=== PATIENT | female | born 1955 | race Caucasian/White ===

== ENCOUNTER 2020-08-01 11:25 | Emergency (ER) | payer OTHER, SELFPAY ==
[2020-08-01 11:30] VITALS: BP 137/73; PULSE 87; RESP 20; TEMP 36.7; O2SAT 96; BMI 40.3
--- NOTE | 2020-08-01 12:02 | DI.MRI.S_ITS ---
PROCEDURE: MR LUMBAR SPINE WO/W CON INDICATIONS: severe pain, LLE weakness TECHNIQUE: Noncontrast sagittal T1 spin echo and T2 fast spin echo, sagittal STIR, axial T1 and T2 fast spin echo through the lumbar spine. In cases with scoliosis, additional coronal T2 fast spin echo may be performed. After the administration of contrast, sagittal and axial T1 spin echo with fat saturation through the lumbar spine. COMPARISON: None. FINDINGS: Image quality: Excellent. Alignment and curvature: There is normal bony alignment. Marrow: Marrow is of normal overall signal. No acute vertebral body compression fractures. No suspicious marrow enhancement. Spinal cord: Conus medullaris terminates at the L1 level. Visualized spinal cord demonstrates normal signal, without suspicious enhancement. Fatty filum terminale can be seen, as on series 3, image 10 and on series 5 image 13, without findings of cord tethering. Paraspinous soft tissues: No paravertebral masses or abnormal enhancement. Postoperative change can be seen at the L4-L5 level, with an expected amount of edema and enhancement. No abnormal postoperative fluid collections are seen. T12-L1: Normal appearance. L1-L2: Normal appearance. L2-L3: Normal appearance. L3-L4: The disc height and disc signal are relatively well preserved. Moderate generalized disc bulge is seen. Moderate facet joint hypertrophy is seen. Associated hypertrophy of the ligamentum flavum can be seen. Moderate bilateral neural foraminal narrowing is seen. Mild central canal narrowing is seen. L4-L5: The disc height is well-preserved. Loss of disc signal is seen at this level. Moderate disc bulge is seen, with a central disc extrusion. At least moderate facet hypertrophy is seen at this level. Enhancing dural fibrosis can be seen, including posteriorly. There is at least moderate left-sided and moderate to severe right-sided neural foraminal narrowing seen. There is a degree of compression seen upon the exiting right L4 nerve root. Moderate to severe central canal narrowing is seen at this level. L5-S1: Moderate to severe loss of disc height and disc signal can be seen. Reactive marrow endplate changes are seen, which are hyperintense on T1-weighted and T2-weighted imaging and most consistent with fatty metaplasia (Modic type II changes). Moderate generalized disc bulge is seen. Moderate facet joint hypertrophy is seen. There is moderate to severe right-sided and at least moderate left-sided neural foraminal narrowing seen. A degree of compression can be seen upon the exiting L5 nerve roots, right worse than left. Moderate central canal narrowing is seen, which is exacerbated by epidural lipomatosis. IMPRESSION: Postoperative change can be seen at the L4-L5 level, with enhancement and dural fibrosis. There is a seen central disc extrusion seen at L4-L5. Moderate to severe central canal narrowing is seen at this level. Moderate to prominent L5-S1 degenerative change is also seen. Sites of neural foraminal narrowing can be seen within the lower lumbar spine, with several levels of associated exiting nerve root compression. Incidental note is made of: Fatty filum terminale Dictated by: Jasmeet Conde M.D. on 08/01/2020 at 12:43 Approved by: Jasmeet Conde M.D. on 08/01/2020 at 12:50
[2020-08-01] MEDS: HYDROMORPHONE 1 MG INJ IM (12:17)
--- NOTE | 2020-08-01 12:21 | ED.BACK ---
HPI - Back Pain/Injury General Chief Complaint: Back Pain/Injury Stated Complaint: legs are not working and previous back surgery Time Seen by Provider: 08/01/20 11:32 Source: patient and family Mode of arrival: Wheelchair Limitations: physical limitation History of Present Illness HPI Narrative: 65-year-old female nonsmoker with extensive history of low back pain and 2 laminectomies earlier this year presents with family in the chief complaint of severe, worsening lower back pain with radiation into left greater than right leg and left leg dragging and weak over the past 24 hours. Any new trauma, falls or injury but does state that she may have overdone it yesterday when on away will watch for much of the day. She has no fever chills and takes no blood thinners. She denies loss of control of bowel or bladder. Her pain is worse when she moves and improves with rest. Initially was difficult to tell if it was hard for her to move her left leg due to pain or weakness but does think it might have been dragging a little bit at some point Related Data Previous Rx's Medication Instructions Recorded oxycodone 5 mg PO Q4-6H PRN #20 tab 08/01/20 Allergies Allergy/AdvReac Type Severity Reaction Status Date / Time cephalexin [From Keflex] Allergy Severe Rash Verified 08/01/20 11:51 prednisone Allergy Severe Hallucinati Verified 08/01/20 11:51 ng Review of Systems Constitutional Constitutional: Denies chills, Denies fatigue, Denies fever(s), Denies frequent falls, Denies lethargy and Denies weakness Eyes Eyes: Denies change in vision, Denies eye discharge, Denies irritation and Denies loss of vision ENT Ears, Nose, Mouth, and Throat: Denies change in voice, Denies dizziness, Denies neck pain, Denies sore throat and Denies throat swelling Cardiovascular Cardiovascular: Denies chest pain, Denies irregular heart rhythm, Denies lightheadedness, Denies palpitations, Denies dyspnea, Denies dyspnea on exertion and Denies orthopnea Respiratory Respiratory: Denies cough, Denies dyspnea, Denies dyspnea on exertion and Denies wheezing Gastrointestinal Gastrointestinal: Denies abdominal pain, Denies change in bowel habits, Denies diarrhea, Denies nausea and Denies vomiting Musculoskeletal Musculoskeletal: Reports back pain, Denies neck pain and Denies numbness Integumentary/Breasts Skin/Breast: Denies pruritus, Denies erythema, Denies rash and Denies wounds Neurologic Neurologic: Denies behavioral changes, Denies confusion, Denies dizziness, Denies frequent falls, Denies loss of vision, Denies numbness and Denies weakness Psychiatric Psychiatric: Denies anxiety, Denies behavioral changes, Denies confusion, Denies depression, Denies homicidal ideation and Denies suicidal ideation Endocrine Endocrine: Denies fatigue, Denies flushing and Denies palpitations Hematologic/Lymphatic Hematologic/Lymphatic: Denies easy bruising Allergic/Immunologic Allergic/Immunologic: Denies urticaria, Denies throat swelling and Denies wheezing Patient History Social History Smoking Status: Never smoker Smoking Status: Never smoker alcohol intake frequency: a few times a week Alcohol type: wine Substance Use Type: marijuana Exam Narrative Exam Narrative: GENERAL: [65] year old patient appears stated age. Well-developed patient, in mild distress. HEAD: Atraumatic. Normocephalic. EYES: Pupils equal round and reactive. Extraocular motions intact. No scleral icterus. No injection or drainage. ENT: Nose without bleeding, purulent drainage. Throat without erythema, tonsillar hypertrophy or exudate. Airway patent. NECK: Trachea midline. Non tender CARDIOVASCULAR: Regular rate and rhythm without murmurs, gallops, or rubs. RESPIRATORY: Clear to auscultation. Breath sounds equal bilaterally. No wheezes, rales, or rhonchi. GASTROINTESTINAL: Abdomen soft, non-tender, nondistended. EXTREMITIES: No edema or joint tenderness. BACK: Mild midline lumbar tenderness, no swelling erythema or fluctuance. No saddle anesthesia. Sensation intact bilateral lower extremities. Patellar reflexes 2+ on right and 1+ on left. 5/5 muscle strength right lower extremity and 4/5 on left. NEURO: AOx3. SKIN: No rash or erythema of visible areas Initial Vital Signs Initial Vital Signs: Vital Signs Temperature 98.1 F 08/01/20 11:30 Pulse Rate 87 08/01/20 11:30 Respiratory Rate 20 08/01/20 11:30 Blood Pressure 137/73 08/01/20 11:30 Pulse Oximetry 96 08/01/20 11:30 Course Orders Ordered: ED Orders 08/01/20 12:02 MR lumbar spine wo/w con Stat Discontinued Medications Hydromorphone HCl (Hydromorphone 1 Mg Inj) 1 mg IM NOW ONE Stop: 08/01/20 12:03 Last Admin: 08/01/20 12:17 Dose: 1 mg Documented by: MAZIN Hydromorphone HCl (Hydromorphone 0.5 Mg Inj) 0.5 mg IV NOW ONE Stop: 08/01/20 13:00 Last Admin: 08/01/20 13:06 Dose: 0.5 mg Documented by: MAZIN Vital Signs Vital signs: Vital Signs - 8 hr 08/01/20 11:30 08/01/20 13:49 08/01/20 14:47 Temperature 98.1 F Pulse Rate 87 90 91 H Respiratory Rate 20 18 14 Blood Pressure 137/73 153/83 H 108/56 L Pulse Oximetry 96 94 94 MDM - Back Pain/Injury Differential Diagnosis Differential diagnosis: Likely lumbar radiculopathy Imaging Data Lumbar MRI: Radiologist's Impression: [address] [id number] Resonance ReportSigned Patient: Anastasia SinghMR#: [id number]: 6Acct:[id number]/Sex: 65 / FDate of Service: 08/01/20Loc: EDAccession Number: [id number] Procedure: MR lumbar spine wo/w con Ordering Provider: Mj Adams D.O. PROCEDURE: MR LUMBAR SPINE WO/W CON INDICATIONS: severe pain, LLE weakness TECHNIQUE: Noncontrast sagittal T1 spin echo and T2 fast spin echo, sagittal STIR, axial T1 and T2 fast spin echo through the lumbar spine. In cases with scoliosis, additional coronal T2 fast spin echo may be performed. After the administration of contrast, sagittal and axial T1 spin echo with fat saturation through the lumbar spine. COMPARISON: None. FINDINGS: Image quality: Excellent. Alignment and curvature: There is normal bony alignment. Marrow: Marrow is of normal overall signal. No acute vertebral body compression fractures. No suspicious marrow enhancement. Spinal cord: Conus medullaris terminates at the L1 level. Visualized spinal cord demonstrates normal signal, without suspicious enhancement. Fatty filum terminale can be seen, as on series 3, image 10 and on series 5 image 13, without findings of cord tethering. Paraspinous soft tissues: No paravertebral masses or abnormal enhancement. Postoperative change can be seen at the L4-L5 level, with an expected amount of edema and enhancement. No abnormal postoperative fluid collections are seen. T12-L1: Normal appearance. L1-L2: Normal appearance. L2-L3: Normal appearance. L3-L4: The disc height and disc signal are relatively well preserved. Moderate generalized disc bulge is seen. Moderate facet joint hypertrophy is seen. Associated hypertrophy of the ligamentum flavum can be seen. Moderate bilateral neural foraminal narrowing is seen. Mild central canal narrowing is seen. L4-L5: The disc height is well-preserved. Loss of disc signal is seen at this level. Moderate disc bulge is seen, with a central disc extrusion. At least moderate facet hypertrophy is seen at this level. Enhancing dural fibrosis can be seen, including posteriorly. There is at least moderate left-sided and moderate to severe right-sided neural foraminal narrowing seen. There is a degree of compression seen upon the exiting right L4 nerve root. Moderate to severe central canal narrowing is seen at this level. L5-S1: Moderate to severe loss of disc height and disc signal can be seen. Reactive marrow endplate changes are seen, which are hyperintense on T1-weighted and T2-weighted imaging and most consistent with fatty metaplasia (Modic type II changes). Moderate generalized disc bulge is seen. Moderate facet joint hypertrophy is seen. There is moderate to severe right-sided and at least moderate left-sided neural foraminal narrowing seen. A degree of compression can be seen upon the exiting L5 nerve roots, right worse than left. Moderate central canal narrowing is seen, which is exacerbated by epidural lipomatosis. IMPRESSION: Postoperative change can be seen at the L4-L5 level, with enhancement and dural fibrosis. There is a seen central disc extrusion seen at L4-L5. Moderate to severe central canal narrowing is seen at this level. Moderate to prominent L5-S1 degenerative change is also seen. Sites of neural foraminal narrowing can be seen within the lower lumbar spine, with several levels of associated exiting nerve root compression. Incidental note is made of: Fatty filum terminale Dictated by: Jasmeet Conde M.D. on 08/01/2020 at 12:43 Approved by: Jasmeet Conde M.D. on 08/01/2020 at 12:50 Discharge Plan Departure Patient Disposition: Home Clinical Impression: Acute left lumbar radiculopathy Instructions: DI for Lumbar Radiculopathy Activity Restrictions/Additional Instructions: *You have been diagnosed with [acute lumbar radiculopathy] *What to do: *Please continue to take your regular medications as directed. [x ] New medication prescriptions sent to your pharmacy: [[facility]] [ ] New medication written as a paper prescription [ ] No new medications given *Please follow up with your primary care provider in 2-3 days, call for an appointment. Let them know you were seen in the Emergency Department and that we ask that you be seen in follow up. We will electronically transmit a record of today's note if your PCP is in our system *If you do not have a primary care provider please contact the [facility] Resource line at [phone]. They will ask some questions about your medical history and help get you set up with a doctor in the community. *Return to Emergency Department if you should have any new, worsening or concerning symptoms, such as [fever greater than 101 F, shaking chills, worsening pain, persistent vomiting or other bothersome symptoms] Prescriptions: New oxycodone 5 mg tablet 5 mg PO Q4-6H PRN (Reason: pain) Qty: 20 RF: 0 Referrals: Jessica Langley MD [Physician] -
[2020-08-01] MEDS: HYDROMORPHONE 0.5 MG INJ IV (13:06)
[2020-08-01 13:49] VITALS: BP 153/83; PULSE 90; RESP 18; O2SAT 94
[2020-08-01 14:47] VITALS: BP 108/56; PULSE 91; RESP 14; O2SAT 94
== END 2020-08-01 14:49 | disposition home or self-care (01) ==
PROVIDERS: Emergency Provider Emergency Medicine
DX: M54.16 Radiculopathy, lumbar region (principal); M54.5 Low back pain
CPT/HCPCS: 72158; 96372; 96374; 99284; J1170